=== PATIENT | female | born 1950 | race Two or more races ===

== ENCOUNTER 2018-10-05 04:54 | Day surgery (SDC) | payer OTHER ==
[~2018-10-05 04:54] MED LIST: ATORVASTATIN CA40 MG PO; ENALAPRIL MALEA20 MG PO; METFORMIN HCL500 MG PO; VITAMIN D35000 UNI1 PO; ZETIA10 MG PO
[2018-10-05] MEDS ORDERED: ULTRACET PO (09:18)
[2018-10-05] MEDS ORDERED: BACTRIM 400-801 EACH PO (09:18)
== END 2018-10-05 13:38 | disposition home or self-care (01) ==
LOC: CIR.AMB 04:54
DX: N81.11 Cystocele, midline (principal)